=== PATIENT | female | born 1965 | race Caucasian/White ===

== ENCOUNTER 2023-10-06 15:39 | Emergency (ER) | payer MEDICARE, SELFPAY ==
[2023-10-06 15:42] VITALS: BP 148/62
--- NOTE | 2023-10-06 16:38 | ED.GENMED ---
History of Present Illness
General
Chief Complaint: Musculo-Skeletal Complaint
Source: patient
Time Seen by Provider: 10/06/23 16:14
Travel History
Have you had any contact with someone who has COVID-19?: No
Do you have any symptoms of coronavirus? Fever > 100 degrees, chills, cough, shortness of breath, sore throat, loss of taste or smell, muscle aches, or headache?: No
History of Present Illness
History of Present Illness:
57-year-old female presenting to the emergency department for evaluation of left knee pain and swelling been ongoing for the last few days, notes that she has had 2 previous cortisone injections and arthrocentesis done in the last 6 months by
Butch Taylor. Patient denies any trauma, fevers or infectious symptoms or any other concerns. She did not take any medications for relief prior to arrival.
Past History
Past History
ED Past Medical History: HTN, NIDDM, Hypothyroidism and Psychiatric
ED Past Surgical History: Orthopedic
Social History
Tobacco: Non-smoker
Alcohol: None
Drug: None
Living: with family
Review of Systems
Review of Systems
All Other Systems: ROS reviewed and negative except as documented in HPI and ROS
Phy Exam
Physical Exam
Physical Exam:
GENERAL: Alert , in no apparent distress
EYE: conjunctiva clear
Head: Normocephalic atraumatic
NECK: Supple,
ENT: mmm.
LUNGS: no acute respiratory distress
NEUROLOGICAL: Alert and oriented
SKIN: Warm and dry, skin intact.
MUSCULOSKELETAL: Left knee: Mild soft tissue swelling with tenderness along the diffuse lateral aspect of the knee with questionable small effusion palpated inferiorly to the patella. Patient allows for full active and passive range of motion
although she does have discomfort during flexion and extension of the knee. No calf tenderness or edema. Neurovascular intact. Remainder of extremity is within normal limits otherwise.
PSYCH: Normal and appropriate interaction.
Scores
Heart Failure Risk
Heart Failure Risk Score: Not Applicable
Heart Score for Chest Pain Patients
STEMI patient?: Not applicable
Withdrawal Assessment of Alcohol
Withdrawal Assessment Completed?: Not applicable
Course
Orders/Labs/Results
Orders:
Orders
10/06/23 15:41
Knee, Left 4 or More Views [CR Knee - Left 4 Or More View*] Urgent
Comment:
Reason For Exam: swelling
Vital Signs
Initial and Last Documented VS:
Initial Vital Signs
Temp Pulse Resp BP Pulse Ox
98.8 F 81 17 148/62 96
10/06/23 15:42 10/06/23 15:42 10/06/23 15:42 10/06/23 15:42 10/06/23 15:42
Last Documented Vital Signs
Temp Pulse Resp BP Pulse Ox
98.8 F 68 16 159/78 97
10/06/23 15:42 10/06/23 17:02 10/06/23 17:02 10/06/23 17:02 10/06/23 17:02
Procedures
Incision/Drainage/Joint Aspiration
Left Knee:
Anethesia: 1% Lidocaine
Preparation: cleaned with Hibiclens
Type of procedure: aspiration
Nature of site: other
How much fluid was obtained?: none (Less than 1 mL bloody joint fluid)
Treatment: bandaid applied
MDM/Problems Addressed
Differential Diagnosis Includes:
Osteoarthritis, gout, I do not have concern for septic joint
MDM/Problems Addressed:
57-year-old female presenting the emergency department for evaluation of left knee pain and swelling, to previous arthrocentesis and cortisone injections in the last 6 months. I expressed to the patient that while she does have a very small knee
effusion I felt that this could be managed with anti-inflammatories and outpatient management. Patient is requesting a arthrocentesis to be performed. Ultimately only scant bloodied fluid was obtained and not enough to be sent for a sample. I
advised patient contact her orthopedist with whom she has a scheduled appointment with in 3 weeks to see if they would be able to move this appointment up. In the meantime we will trial a Medrol Dosepak for pain control and symptomatic relief.
Patient is stable for discharge home and continued outpatient management.
*Radiology
Radiology exam reviewed: preliminary read by ED provider (Arthritic changes)
*Pulse Oximetry
Patient hypoxic: no
*Critical Care Note
Total Time (30-74mins, 75-104mins- exclusive of procedures): Not Applicable
ED Attending Note
-
Portions of this chart may have been created with voice recognition software.� Occasional wrong word or��sound alike� substitutions may have occurred due to the inherent limitations of voice recognition software.
Discharge Plan
Departure
Patient Disposition: Home (Routine Discharge)
Date of Disposition: 10/06/23
Time of Disposition: 16:38
Patient with high blood pressure during this ER visit?: Yes
Discharge Problem:
Left knee pain
Instructions: Knee Pain (DC)
Prescriptions:
New
methylprednisolone [Medrol ([place])] 4 mg tablets,dose pack
4 mg PO DIRECTED Qty: 21 0RF
Referrals:
Dipak Anguiano MD [Active] - (Call for appointment)
Interventions
Interventions:
*Risk Screen - Suicide Last Done: 10/06/23 15:42
*General Assessment Last Done: 10/06/23 15:42
*Neglect/Abuse Screening Last Done: 10/06/23 15:42
ED- Fall Risk Assessment Last Done: 10/06/23 17:02
*ED COVID-19 Vaccine History Last Done: 10/06/23 15:42
*Nursing Disposition Last Done: 10/06/23 17:02
ED-Musculoskeletal Assessment Last Done: 10/06/23 16:42
Discharge Date and Time
Discharge Date/Time: 10/06/23 17:03
[2023-10-06 17:02] VITALS: BP 159/78
== END 2023-10-06 17:03 | disposition home or self-care (01) ==
LOC: EMR 15:39
PROVIDERS: EMERGENCY PHYSICIAN Emergency Medicine; FAMILY PHYSICIAN Family Medicine
DX: M25.562 Pain in left knee (principal); I10 Essential (primary) hypertension; E11.9 Type 2 diabetes mellitus without complications; E03.9 Hypothyroidism, unspecified
CPT/HCPCS: 99283; 73564